=== PATIENT | male | born 1950 | race Caucasian/White ===

== ENCOUNTER 2017-08-14 13:01 | Outpatient (CLI) | payer MEDICARE, BC ==
--- NOTE | 2017-08-15 09:25 | XRAY Report ---
EXAM: LEFT SHOULDER RADIOGRAPHY EXAM DATE: 08/14/2017 01:54 PM. CLINICAL HISTORY: CHRONIC L SHOULDER Pain, no TRAUMA. COMPARISON: None. TECHNIQUE: 3 views. FINDINGS: Bones: Normal. No fracture or bone lesion. Joints: The glenohumeral and acromioclavicular joints are normally aligned. Mild AC joint degenerativ e disease. Soft tissues: The visualized hemithorax demonstrate no acute abnormalities. Dense nodule projecting o eliazar the peripheral upper left hemithorax on one view is consistent with a calcified nodule and could represent a calcified pulmonary granuloma or an incidental superimposed soft tissue calcification. IMPRESSION: 1. No acute abnormality. 2. Mild acromioclavicular joint degenerative disease. [facility] Referring Provider Line: [phone] SITE ID: [id number]
== END 2017-08-14 13:02 | disposition home or self-care (01) ==
LOC: DI 13:01
PROVIDERS: ATTEND Family Medicine
DX: M19.012 Primary osteoarthritis, left shoulder (principal)

== ENCOUNTER 2018-06-26 17:09 | Outpatient (CLI) | payer MEDICARE, BC ==
--- NOTE | 2018-06-27 08:34 | Ultrasound Report ---
Reason: ACUTE KIDNEY FAILURE, BLADDER OUTLET OBSTRUCTION Procedure Date: 06/26/2018 Accession Number: [id number] / [id number] Procedure: US - Retroperitoneal CPT Code: FULL RESULT: EXAM: RENAL ULTRASOUND EXAM DATE: 06/26/2018 06:13 PM. CLINICAL HISTORY: ACUTE KIDNEY FAILURE, BLADDER OUTLET OBSTRUCTION. COMPARISON: SHOULDER 3 VIEW LT 08/14/2017 1:37 PM. TECHNIQUE: Real-time scanning was performed with static images obtained. FINDINGS: Right Kidney: 10.1 x 6 x 5.5 cm. 2.5 x 2.6 cm mildly echogenic mid right renal tissue. Left Kidney: 9.5 x 5.2 x 5 cm. Normal echotexture with no stones, contour-deforming masses, or hydronephrosis. Bladder: Bilateral jets seen. The prevoid bladder volume was 197 cc. The postvoid bladder volume was 40 cc. Other: None. IMPRESSION: 1. No hydronephrosis. 2. A 2.6 cm region of mildly echogenic mid right renal tissue. This could be related to column of Delfino as normal variant or potential renal mass. Recommend comparison with any prior studies if possible. Alternatively, further characterization could be performed with CT or MRI. [facility]
== END 2018-06-26 17:10 | disposition home or self-care (01) ==
LOC: DI 17:09
PROVIDERS: ATTEND Internal Medicine Nephrology
DX: N17.9 Acute kidney failure, unspecified (principal); N32.0 Bladder-neck obstruction
CPT/HCPCS: 76770

== ENCOUNTER 2022-09-24 08:01 | Outpatient (CLI) | payer MEDICARE, BC ==
--- NOTE | 2022-09-24 15:41 | Ultrasound Report ---
PROCEDURE: Aorta Screening INDICATIONS: HIST OF SMOKING TECHNIQUE: Real time scanning was performed of the aorta and iliac arteries, with image documentatio n. COMPARISON: Retroperitoneal ultrasound 06/26/2018 FINDINGS: Aorta: Proximal aortic diameter measures 2.5 cm. Mid-aorta measures 1.5 cm. Distal aortic diameter is 1.8 cm. Iliac arteries: Right common iliac artery measures 1.2 cm. Left common iliac artery measures 1.3 cm . IMPRESSION: Minimal scattered atherosclerotic calcification without aneurysmal dilation. Reviewed by: Susanna Hayward MD on 09/24/2022 3:40 PM PST Approved by: Susanna Hayward MD on 09/24/2022 3:40 PM PST Station ID: [id number]
== END 2022-09-24 08:02 | disposition home or self-care (01) ==
LOC: DI 08:01
PROVIDERS: ATTEND Physician Assistant
DX: Z13.6 Encounter for screening for cardiovascular disorders (principal); Z87.891 Personal history of nicotine dependence; I70.90 Unspecified atherosclerosis